=== PATIENT | female | born 1980 | race African-American/Black ===

== ENCOUNTER 2022-11-11 22:41 | Emergency (ER) | payer OTHER ==
[2022-11-11 22:45] VITALS: BP 169/96; PULSE 90; RESP 18; TEMP 97.9; BMI 31.2
[2022-11-12] MEDS ORDERED: DOXYCYCLINE HYCLATE 100 MG CAPSULE PO ONE ×2 (00:23→00:25)
[2022-11-12] MEDS ORDERED: diphenhydrAMINE HCL 50 MG CAPSULE PO ONE (00:23)
[2022-11-12] MEDS ORDERED: diphenhydrAMINE HCL 25 MG CAPSULE (FP) PO ONE (00:25)
== END 2022-11-12 00:35 | disposition home or self-care (01) ==
LOC: JERFT 22:41
DX: R21 Rash and other nonspecific skin eruption (principal); L73.9 Follicular disorder, unspecified
CPT/HCPCS: 99283-25